=== PATIENT | male | born 1965 | race Hispanic/Latino ===

== ENCOUNTER 2018-03-10 21:46 | Observation (INO) | payer OTHER ==
[~2018-03-10] VITALS: Ht 170.2 cm; Wt 74.0 kg
[2018-03-10] MEDS ORDERED: ONDANSETRON HCL INJ 2 MG/ML VIAL IV STA (22:04)
[2018-03-10] MEDS ORDERED: MORPHINE SULFATE 2 MG/ML SYR IV STA (22:04)
--- NOTE | 2018-03-10 23:19 | Diagnostic Imaging Report ---
EXAM: CT ABDOMEN AND PELVIS WITH IV CONTRAST INDICATION: Right lower quadrant abdominal pain COMPARISON: None TECHNIQUE: The abdomen and pelvis were scanned using a multidetector helical scanner. Coronal and sagittal reformations were obtained. Dose modulation, iterative reconstruction, and/or weight based adjustment of the mA/kV was utilized to reduce the radiation dose to as low as reasonably achievable. Routine protocol performed. IV Contrast: 100 cc Isovue-370 Oral Contrast: None CTDIvol has been reviewed. It is below the limits set by the Radiation Protocol Committee (RPC). FINDINGS: LOWER THORAX: No consolidations LIVER: Simple right hepatic cyst measuring 4 cm. BILIARY: Normal gallbladder. No ductal dilation. SPLEEN: No masses PANCREAS: No masses ADRENALS: No nodules KIDNEYS: No enhancing masses. No hydronephrosis. GI TRACT: The appendix is dilated to 1cm with mild periappendiceal fat-stranding. Remainder of the bowel is unremarkable. VESSELS: Unremarkable PERITONEUM/RETROPERITONEUM: No free air or fluid LYMPH NODES: Mild reactive lymphadenopathy right lower quadrant of the abdomen. REPRODUCTIVE ORGANS: Normal BLADDER: Normal SOFT TISSUES: Normal BONES: No suspicious bone lesions. IMPRESSION: Acute appendicitis without abscess formation or free peritoneal air. Findings discussed with Dr. Ch March 10, 2018 at 2314 hours. Signed by: Dr. Chandrika Acosta M.D. on 03/10/2018 11:16 PM
--- OUTSIDE RECORDS SUMMARY | 2018-03-10 23:59 | XMS REPORT ---
Author [facility] Address Unknown Phone Unavailable Care Team Providers Care [facility] D[facility] Cashier Name Role Phone Kailee CH Unavailable Unavailable Problems This patient has no known problems. Allergies, Adverse Reactions, Alerts This patient has no known allergies or adverse reactions. Medications This patient has no known medications. Results Test Description Test Time Test Comments Text Results Atomic Results Result Comments CT ABD/PEL WITH CONTRAST-HOPD 2018-03-10 23:09:00 [place] [address] Patient Name: ROBERTH JACINTO MR #: [id number] : 1965 Age/Sex: 52/M Req #: [id number] Adm Physician: Ordered by: ABIDA CH MD Report #: [id number] Location: [facility] Room/Bed: Procedure: [id number] HOPD/CT ABD/PEL WITH CONTRAST-HOPD Exam Date: 03/10/18 Exam Time: 2250 REPORT STATUS: Signed EXAM: CT ABDOMEN AND PELVIS WITH IV CONTRAST INDICATION: Right lower quadrant abdominal pain COMPARISON: None TECHNIQUE: The abdomen and pelvis were scanned using a multidetector helical scanner. Coronal and sagittal reformations were obtained. Dose modulation, iterative reconstruction, and/or weight based adjustment of the mA/kV was utilized to reduce the radiation dose to as low as reasonably achievable. Rou beata protocol performed. IV Contrast: 100 cc Isovue-370 Oral Contrast: None CTDIvol has been reviewed. It is below the limits set by the Radiation Protocol Committee (RPC). FINDINGS: LOWER THORAX: No consolidations LIVER: Simple right hepatic cyst measuring 4 cm. BILIARY: Normal gallbladder. No ductal dilation. SPLEEN: No masses PANCREAS: No masses ADRENALS: No nodules KIDNEYS: No enhancing masses. No hydronephrosis. GI TRACT: The appendix is dilated to 1cm with mild periappendiceal fat-stranding. Remainder of the bowel is unremarkable. VESSELS: Unremarkable PERITONEUM/RETROPERITONEUM: No free air or fluid LYMPH NODES: Mild reactive lymphadenopathy right lower quadrant of the abdomen. REPRODUCTIVE ORGANS: Normal BLADDER: Normal SOFT TISSUES: Normal BONES: No suspicious bone lesions. IMPRESSION: Acute appendicitis without abscess formation or free peritoneal air. Findings discussed with Dr. Ch March 10, 2018 at 2314 hours. Signed by: Dr. Junior Acosta M.D. on 03/10/2018 11:16 PM Dictated By: JUNIOR ACOSTA MD [id number] Transcribed By: KAREN on 03/10/18 [id number] COPY TO: ABIDA CH MD
[2018-03-11] VITALS (7 sets, daily range): BP systolic 117–135; BP diastolic 65–93
[2018-03-11] MEDS ORDERED: MORPHINE SULFATE 2 MG/ML SYR IV PRN
[2018-03-11] MEDS ORDERED: ONDANSETRON HCL INJ 2 MG/ML VIAL IV PRN
[2018-03-11] MEDS: SODIUM CHLORIDE 0.9% 1000ML 1,000 ML IV SCH ×2 (01:34→09:46)
[2018-03-11] MEDS: PIPER-TAZ 3.375 GM 50 ML IV SCH ×2 (14:00)
[2018-03-11 14:29] LABS: HEMATOCRIT 41.9 % (38.2-49.6); MEAN CORPUSCULAR HEMOGLOBIN 30.4 pg (28-32); MEAN CORPUSCULAR HGB CONC 33.4 g/dL (31-35); MEAN CORPUSCULAR VOLUME 90.9 fL (81-99); PLATELET COUNT 209 x10e3/uL (140-360); RED BLOOD COUNT 4.61 x10e6/uL (4.3-5.7); RED CELL DISTRIBUTION WIDTH 12.8 % (11.7-14.4)
[2018-03-11 14:51] LABS: BLOOD UREA NITROGEN 15 mg/dL (7-26); BUN/CREATININE RATIO 18 (6-25); CALCIUM 8.9 mg/dL (8.4-10.2); CARBON DIOXIDE 27 mmol/L (22-29); CHLORIDE 108 mmol/L (98-107); CREATININE, SERUM 0.84 mg/dL (0.72-1.25); EST GLOMERULAR FILTRATION RATE > 60 ML/MIN (60-); GLUCOSE 103 mg/dL (74-118); SODIUM 142 mmol/L (136-145)
[2018-03-11 16:46] LABS: EOSINOPHILS % (MANUAL) 3 % (0-7); LYMPHOCYTES % (MANUAL) 16 % (19-48); MONOCYTES % (MANUAL) 5 % (3.4-9.0); NEUTROPHILS % (MANUAL) 75 % (40-74); RBC MORPHOLOGY COMMENT NORMAL
[2018-03-11 16:47] LABS: PLATELET ESTIMATE ADEQUATE; PLATELET MORPHOLOGY COMMENT FEW LARGE
--- NOTE | 2018-03-11 17:21 | History and Physical ---
HISTORY OF PRESENT ILLNESS: Patient is a 52-year-old with no past medical history. He came here with abdominal pain. There was questionable appendicitis on a CT of the abdomen. He was admitted to the hospital and started on IV antibiotics. Dr. Love, surgeon, saw the patient. His impression was the patient did not have appendicitis. He has probably some sort of colitis. Patient is going to go home today if okay with Dr. Love, the surgeon. Patient is completely asymptomatic. White blood count is normal. No fever. No vomiting. No abdominal pain. REVIEW OF SYSTEMS CARDIOVASCULAR: No chest pain or palpitations. RESPIRATORY: No shortness of breath. No cough. GASTROINTESTINAL: No nausea. No vomiting. No diarrhea. The abdominal pain is completely resolved. GENITOURINARY: No frequency, no dysuria. ALLERGIES: NOT ALLERGIC TO ANY MEDICATION. MEDICATIONS: He does not take any medications. PHYSICAL EXAMINATION HEART: Regular rhythm. Normal S1, S2 sounds. LUNGS: Clear bilaterally. ABDOMEN: Soft. McBurney sign is negative. No distention. No visceromegaly. EXTREMITIES: No evidence of cyanosis, edema or trauma. LABS: The blood pressure is 124/59, temperature 96.2, heart rate 65 per minute. Respiratory rate is 16 per minute. Oxygen saturation 97%. On the BMP, sodium 130, potassium 4.3, chloride 98, CO2 23, BUN 15, creatinine 1.11. Glucose 119. On the CBC, white blood count 6.85; hemoglobin 11.3; hematocrit 36.5; platelet count 142,000. PT 13.4, INR 0.94, PTT 28.6. AST 24, ALT 16, total bilirubin 1.8, alkaline phosphatase 68. FINAL IMPRESSION: Abdominal pain with no evidence of appendicitis, most likely due to colitis. Patient is going to be discharged home today if okay with Dr. Love. Follow up with Dr. Dewayne Ross as an outpatient for further workup on the abdominal pain. He is going to be discharged on Levaquin 500 mg daily for 10 days. Job#: [id number]
--- NOTE | 2018-03-11 17:21 | Discharge Summary ---
HISTORY OF PRESENT ILLNESS: A 52-year-old male, no past medical history, came here with abdominal pain. He was found to have a possible appendicitis on a CT of the abdomen. He was admitted to the hospital and started on IV Zosyn. Dr. Reinaldo Love, surgeon, saw the patient. He found no evidence of appendicitis clinically. Patient has no pain. White blood count is normal. He recommended patient can go home today. His impression was possible colitis; so, we are going to put him on Levaquin for 10 days. PHYSICAL EXAM: Blood pressure 121/78, temperature 98.1, heart rate 66 per minute, respiratory rate 18 per minute, oxygen saturation 98%. LABORATORY STUDIES: Sodium 142, potassium 4.30, chloride 108, CO2 27, BUN 15, creatinine 0.8, glucose 103. On the CBC: White blood count 7.40, hemoglobin 14.0, hematocrit 41.9, platelet count 209,000. FINAL IMPRESSIONS: Abdominal pain. Questionable colitis. No evidence of appendicitis as per Dr. Love, surgeon. Patient is going home on Levaquin 500 mg daily for 10 days. Follow up with Dr. Dewayne Ross in a week and myself in a week. Patient needs to come to the ER should the symptoms worsen. MIESHA BUSH MD Job#: [id number] EV
--- NOTE | 2018-03-11 19:31 | Consultation ---
DATE OF CONSULTATION: March 11, 2018 CHIEF COMPLAINT: Abdominal pain. HISTORY OF PRESENT ILLNESS: This patient is a 52-year-old male with 3-day history of pain starting in the periumbilical area, then relocalize to right lower quadrant with nausea, but no vomiting. No diarrhea, fever or chills. Patient has had similar pain in the past x3 several months and years apart. Pain usually lasts 2-3 days and spontaneously resolved. PAST MEDICAL HISTORY: Unremarkable for chronic illness or surgery. DRUG ALLERGIES: NONE. SOCIAL HABITS: He does not smoke or drink alcohol. REVIEW OF SYSTEMS: No chest pain or shortness of breath. No cough. EXAM VITALS: Stable. Afebrile. GENERAL: Patient is awake, alert. No apparent distress. HEENT: Sclerae anicteric. NECK: Supple. LUNGS: Clear. HEART: Regular rate and rhythm. ABDOMEN: Soft. No focal mass, tenderness. No guarding. EXTREMITIES: Without cyanosis, edema. LAB: White cell is count 10. CT scan showed dilated appendix with some mild inflammatory changes, suggestive of early appendicitis. ASSESSMENT: Early appendicitis, which seemed to be resolving spontaneously. PLAN: Recommend appendectomy to prevent recurrence. Patient will make decisions with family. Job#: [id number] CQ
== END 2018-03-11 17:30 | disposition home or self-care (01) ==
LOC: FSED 21:46 → ERHOLD 23:50 → MED/SURG 03-11 00:50
PROVIDERS: ADMIT Internal Medicine; ATTEND Internal Medicine
DX: K35.80 Unspecified acute appendicitis (principal); Z88.8 Allergy status to other drugs, medicaments and biological substances
CPT/HCPCS: 36415; 74177; 80048; 80053; 81003; 85007; 85025; 85027; 99284; G0378 ×2; J2543; J7030